=== PATIENT | male | born 1965 | race Hispanic/Latino ===

== ENCOUNTER 2017-01-12 16:44 | Observation (INO) | payer OTHER ==
[2017-01-12] MEDS ORDERED: Sodium Chloride 0.9% 500 ML IV STA (17:05)
--- NOTE | 2017-01-12 17:36 | ED PDOC ---
HPI: Chest Pain History Per: Patient, Family History/Exam Limitations: no limitations Onset/Duration Of Symptoms: Hrs Current Symptoms Are (Timing): Still Present Quality: Burning Associated Symptoms: Dyspnea. denies: Nausea, Diaphoresis, Syncope - Risk Factors PE Risk Factors: Pos: CHF Neg: Extremity Immobilization/Fx, Decreased Mobilty /Activity, Recent Major Surgery, Recent Hospitalization, Active Cancer, Previous DVT, Previous PE, Recent Major Trauma TAD Risk Factors: Neg: Hypertension, Connective Tissue Disease, Marfan's Syndrome, Brian- Danlos Syndrome, Aortic Valve Disease, Active , Migration Of Pain, New Neurologic Symptoms <Mak Mora - Last Filed: 01/12/17 19:04> <Santhosh Lester - Last Filed: 01/12/17 20:17> Time Seen by Provider: 01/12/17 17:25 Chief Complaint (Nursing): Chest Pain Additional Complaint(s): CC: chest pain HPI: 51 y/o man w/ 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 The patient reports SOB started first in the morning and became worse by noon. Patient then reports burning, epigastric pain with radaition to the back at 16:00. The patient also reports increased non-productive cough over the past few days. The patient denies yariel colored or frothy sputum. The patient took lasix 20 mg PO 30 minutes prior to arrival to ED. The patient denies headaches, dizziness, abdominal pain, nausea, vomiting, diarrhea, dysuria, or fever. 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 Patient is on 2g sodium and 2L fluid restriction. Patient has not been able to establish follow up care upon moving. The patient has missed 2 doses of beta-isauro because he ran out but has been taking Entresto without issue. Allergies: ciprofloxacin, codeine PMH: systolic CHF (EF 40% as of 12/2015) PMD: none PSH: cath 05/2015 (clean, no stents) SOC: denies smoking, alcohol, and drugs ROS: negative for 12 points assessed unless otherwise reported in HPI (Mka Mora) Chest pain (Santhosh Lester) Supervising Attending Note <Mak Mora - Last Filed: 01/12/17 19:04> - Supervising Attending Note The Documented history was done by the: Physician Guide Tour The documented physical exam was done by the: Physician Guide Tour The documented procedures were done by the: Physician Guide Tour - Attestation: I have personally seen and examined this patient.: Yes I have fully participated in the care of the patient.: Yes I have reviewed all pertinent clinical information: Yes <Santhosh Lester - Last Filed: 01/12/17 20:17> - Notes: Notes:: Dyspnea and chest pain (Santhosh Lester) Past Medical History - Medical History PMH: CHF, Chronic Kidney Disease - Family History Family History: States: Unknown Family Hx <Mak Mora - Last Filed: 01/12/17 19:04> - Medical History Other PMH: myocarditis hx <Santhosh Lester - Last Filed: 01/12/17 20:17> Vital Signs: Last Vital Signs Temp 98.2 F 01/12/17 16:53 Pulse 74 01/12/17 19:31 Resp 16 01/12/17 19:31 BP 122/74 01/12/17 19:31 Pulse Ox 100 01/12/17 19:31 - Home Medications Home Medications: Ambulatory Orders Medication Instructions Recorded Carvedilol [Coreg] 25 mg PO BID 01/12/17 Esomeprazole Magnesium [Nexium] 20 mg PO BID 01/12/17 Furosemide [Lasix] 12.5 mg PO DAILY PRN 01/12/17 Sacubitril/Valsartan [Entresto 24 1 tab PO BID 01/12/17 mg-26 mg] - Allergies Allergies/Adverse Reactions: Allergies Allergy/AdvReac Type Severity Reaction Status Date / Time ciprofloxacin [From Cipro] Allergy SHORTNESS Verified 01/12/17 16:53 OF BREATH codeine Allergy VOMITING Verified 01/12/17 16:53 RICKY Risk Score for UA/NSTEMI - RICKY Risk Score Age > 64: NO 3 or more CAD Risk Factors: NO Known CAD (Stenosis greater than 50%): NO Aspirin use in past 7 days: NO Severe Angina: NO EKG ST changes greater than 0.5mm: NO RICKY Score: 0 Risk %: 5% <Mak Mora - Last Filed: 01/12/17 19:04> Curb-65 Severity Score - CURB-65 Severity Score Confusion: No Respiratory Rate greater than/equal to 30: No Systolic BP <90 or Diastolic BP less than/equal 60mmHg: No Age >64: No Curb-65 Score: 0 Percentage 30-day mortality: 0.6% <Mak Mora Last Filed: 01/12/17 19:04> Wells Criteria for PE - Wells Criteria for Pulmonary Embolism Clinical Signs and Symptoms of DVT: No P.E is #1 Diagnosis, or Equally Likely: No Heart Rate >100: Yes Immobilization at least 3 days;Surgery previous 4 weeks: No Previous, objectively diagnosed PE or DVT: No Hemoptysis: No Malignancy w/treatment within 6 months, or palliative: No Total Score: 1.5 <Mak Mora Filed: 01/12/17 19:04> Review of Systems ROS Statement: Except As Marked, All Systems Reviewed And Found Negative Constitutional: Negative for: Fever, Chills, Sweats Cardiovascular: Positive for: Chest Pain, Edema. Negative for: Orthopnea, Paroxysmal Noc. Dyspnea, Light Headedness Respiratory: Positive for: Cough, Shortness of Breath. Negative for: Hemoptysis , Sputum, Wheezing Gastrointestinal: Negative for: Nausea, Vomiting, Abdominal Pain, Diarrhea Genitourinary Male: Negative for: Dysuria Neurological: Negative for: Confusion, Altered Mental Status, Headache, Dizziness <Mak Mora Last Filed: 01/12/17 19:04> Physical Exam - Reviewed Nursing Documentation Reviewed: Yes Vital Signs Reviewed: Yes - Physical Exam Appears: Positive for: No Acute Distress Head Exam: Positive for: ATRAUMATIC, NORMAL INSPECTION, NORMOCEPHALIC Skin: Positive for: Normal Color, Warm, Dry. Negative for: Diaphoresis Neck: Positive for: Supple Cardiovascular/Chest: Positive for: Chest Non Tender, Edema, Tachycardia. Negative for: JVD, Murmur, Bradycardia Respiratory: Positive for: Decreased Breath Sounds. Negative for: Crackles, Rales, Rhonchi, Wheezing, Respiratory Distress Pulses-Carotid (L): 2+ Pulses-Carotid (R): 2+ Pulses-Radial (L): 2+ Pulses-Radial (R): 2+ Gastrointestinal/Abdominal: Positive for: Normal Exam Neurologic/Psych: Positive for: Alert, Oriented <Mak Mora - Last Filed: 01/12/17 19:04> - Physical Exam Neck: Positive for: Supple Cardiovascular/Chest: Positive for: Chest Non Tender, Edema, Tachycardia (mild) Respiratory: Positive for: Decreased Breath Sounds <Santhosh Lester - Last Filed: 01/12/17 20:17> - Laboratory Results Result Diagrams: 01/12/17 17:50 01/12/17 17:50 - ECG O2 Sat by Pulse Oximetry: 99 <Mak Mora - Last Filed: 01/12/17 19:04> - Laboratory Results Result Diagrams: 01/12/17 17:50 01/12/17 17:50 Interpretation Of Abn Labs: 3.3 k - ECG ECG: Positive for: Interpreted By Me, Viewed By Me ECG Rhythm: Positive for: Nonspecific Changes Pulse Ox Interpretation: Normal - Radiology X-Ray: Interpreted by Me X-Ray Interpretation: No Acute Disease <Santhosh Lester - Last Filed: 01/12/17 20:17> - Progress ED Course And Treament: CBC w/ diff CMP troponin pro-BNP D-dimer PT INR aPTT CXR EKG ASA 325 mg PO IVF NS 500mL @ 100mL/hr (Mak Mora) 2010: Stable. AAOx3. Pain gone. Dyspnea improving. No chest pain. Has been urinating. 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 2014: Stable. Spoke with Dr. Cavanaugh. Will admit tele obs and give further orders when pt. reaches floor. 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 Lester (Mak Mora) Disposition - Patient ED Disposition Is Patient to be Admitted: Transfer of Care Discussed With : Santhosh Lester - Disposition Disposition Time: 19:03 Patient Signed Over To: Santhosh Lester - POJosee Present On Arrival: None <Mak Mora - Last Filed: 01/12/17 19:04> - Patient ED Disposition Is Patient to be Admitted: Yes Discussed With : Poli Cavanaugh Counseled Patient/Family Regarding: Studies Performed, Diagnosis - POA Present On Arrival: None <Santhosh Lester - Last Filed: 01/12/17 20:17> - Clinical Impression Clinical Impression: Chest pain, CHF (congestive heart failure) - Disposition Condition: FAIR
[2017-01-12 18:16] LABS: BASO % 0.5 % (0.0-2.0); EOS # 0.1 K/uL (0.0-0.7); EOS % 1.2 % (0.0-4.0); HEMATOCRIT 43.7 % (35.0-51.0); LYMPH # 2.1 K/uL (1.0-4.3); LYMPH % 29.7 % (20.0-40.0); MEAN CELL VOLUME 91.1 fl (80.0-94.0); MEAN CORPUSCULAR HEMOGLOBIN 32.3 pg (27.0-31.0); MEAN CORPUSCULAR HGB CONC 35.5 g/dL (33.0-37.0); MEAN PLATELET VOLUME 6.8 fl (7.2-11.7); MONO # 0.6 K/uL (0.0-0.8); MONO % 8.5 % (0.0-10.0); NEUT # 4.3 K/uL (1.8-7.0); NEUT % 60.1 % (50.0-75.0); NRBC % 0.1 % (0.0-0.0); RED CELL DISTRIBUTION WIDTH 14.1 % (11.5-14.5); WHITE BLOOD COUNT 7.2 K/uL (4.8-10.8)
[2017-01-12 18:23] LABS: ALB/GLOB RATIO 1.5 (1.0-2.1); ALKALINE PHOSPHATASE 65 U/L (38-126); ALT/SGPT 37 U/L (21-72); AST/SGOT 29 U/L (17-59); BILIRUBIN,TOTAL 0.8 mg/dl (0.2-1.3); BLOOD UREA NITROGEN 17 mg/dl (9-20); CALCIUM 8.8 mg/dL (8.4-10.2); CARBON DIOXIDE 23 mmol/L (22-30); CHLORIDE 104 mmol/L (98-107); GFR AFRICAN-AMERICAN > 60; GLUCOSE,RANDOM 106 mg/dL (75-110); SODIUM 139 mmol/l (132-148); TOTAL PROTEIN 7.7 G/DL (6.3-8.2)
[2017-01-12 18:40] LABS: POTASSIUM 3.3 MMOL/L (3.6-5.0)
[2017-01-12 18:43] LABS: PARTIAL THROMBOPLASTIN TIME 33.4 Seconds (25.6-37.1)
--- NOTE | 2017-01-13 07:31 | CARD ---
APPROVED REPORT EKG Measurement Heart [id number] [place] 140P36 [id number] <Conclusion> Sinus tachycardia Nonspecific ST and T wave abnormality Abnormal ECG
[2017-01-13] MEDS ORDERED: Enoxaparin 40 mg Syringe SC SCH (09:00)
[2017-01-13] MEDS ORDERED: Patient's Own Med (Sacubitril/Valsartan [Entresto 24 Mg-26 Mg] 1 TAB) PO SCH (09:00)
--- NOTE | 2017-01-13 10:34 | RAD ---
HISTORY: pain chest COMPARISON: No prior. FINDINGS: LUNGS: Right hemidiaphragm is elevated however there is no definite acute infiltrate appreciated. An azygous fissure is noted at the medial right lung apex. PLEURA: No significant pleural effusion identified, no pneumothorax apparent. CARDIOVASCULAR: Normal. OSSEOUS STRUCTURES: No significant abnormalities. VISUALIZED UPPER ABDOMEN: Normal. OTHER FINDINGS: None. IMPRESSION: No acute infiltrate or pleural effusion identified bilaterally. An elevated right hemidiaphragm is appreciated of uncertain origin.
[2017-01-13 12:23] VITALS: RESP 16; TEMP 98.4
[2017-01-13] MEDS ORDERED: Potassium Chloride 20 mEq ER Tab PO ONE (13:00)
--- NOTE | 2017-01-13 15:46 | CT ---
PROCEDURE: CT Chest without contrast HISTORY: Elevated R hemidiaphragm COMPARISON: January 13, 2017. TECHNIQUE: Contiguous axial images were obtained through the chest without intravenous contrast enhancement. Sagittal and coronal reconstructions were performed. Radiation dose (DLP): 758.29 mGy-cm. This CT exam was performed using one or more of the following dose reduction techniques: Automated exposure control, adjustment of the mA and/or kV according to patient size, and/or use of iterative reconstruction technique. FINDINGS: LUNGS: Clear lungs. Visualized airway clear. MEDIASTINUM: Unremarkable thoracic aorta. No aneurysm. Normal sized heart. Main pulmonary artery unremarkable. No vascular congestion. No lymphadenopathy. PLEURA: No pleural fluid. No pneumothorax. Azygos fissure common normal variant BONES: No fracture. No destructive lesion. UPPER ABDOMEN: Grossly unremarkable. OTHER FINDINGS: None. IMPRESSION: No active pulmonary disease. Enlarged mediastinal lymph nodes of uncertain etiology and significance. Additional benign and/or incidental findings described above.
--- NOTE | 2017-01-13 16:27 | CARD ---
APPROVED REPORT EXAM: Two-dimensional and M-mode echocardiogram with Doppler and color Doppler. Other Information Quality : GoodRhythm : NSR INDICATION Congestive Heart Failure 2D DIMENSIONS IVSd1.24 (0.7-1.1cm)LVDd6.44 (3.9-5.9cm) LVOT Diameter2.52 (1.8-2.4cm)PWd0.56 (0.7-1.1cm) IVSs1.34 (0.8-1.2cm)LVDs5.58 (2.5-4.0cm) FS (%) 13.3 %PWs0.89 (0.8-1.2cm) M-Mode DIMENSIONS Left Atrium (MM)4.17 (2.5-4.0cm)IVSd1.06 (0.7-1.1cm) Aortic Root3.04 (2.2-3.7cm)LVDd5.56 (4.0-5.6cm) Aortic Cusp Exc.2.12 (1.5-2.0cm)PWd0.99 (0.7-1.1cm) IVSs0.99 cmFS (%) 13 % LVDs4.83 (2.0-3.8cm)PWs1.06 cm Mitral Valve MV E Rulxfzwm91.4cm/sMV DECEL [id number] A Azdbkhjg30.0cm/s MV PXJ01ulN/A ratio0.6MVA (PHT)6.31cm2 TDI Lateral E' Peak V8.96cm/sMedial E' Peak V5.46cm/sE/Lateral E'4.0 E/Medial E'6.5 Pulmonary Valve PV Peak Dusmtxzv72.5cm/s LEFT VENTRICLE The Left Ventricle is moderately dilated. There is normal left ventricular wall thickness. The systolic function is mildly to moderately impaired. The Ejection Fraction is 30-35%. There is global hypokinesis of the left ventricle. The left ventricular diastolic function is normal. No left ventricle thrombus noted on this study. There is no mass noted in the left ventricle. RIGHT VENTRICLE The right ventricle is normal size. There is normal right ventricular wall thickness. The right ventricular systolic function is normal. ATRIA The left atrium size is normal. The right atrium size is normal. The interatrial septum is intact with no evidence for an atrial septal defect. AORTIC VALVE The aortic valve is normal in structure and function. No aortic regurgitation is present. There is no aortic valvular stenosis. There is no aortic valvular vegetation. MITRAL VALVE The mitral valve is normal in structure and function. There is no evidence of mitral valve prolapse. There is no mitral valve stenosis. Mitral regurgitation is mild. TRICUSPID VALVE The tricuspid valve is normal in structure and function. There is no tricuspid valve regurgitation noted. There is no tricuspid valve prolapse or vegetation. There is no tricuspid valve stenosis. PULMONIC VALVE The pulmonary valve is normal in structure and function. There is no pulmonic valvular regurgitation. There is no pulmonic valvular stenosis. GREAT VESSELS The aortic root is normal in size. The IVC is normal in size and collapses >50% with inspiration. PERICARDIAL EFFUSION The pericardium appears normal. There is no pleural effusion. <Conclusion> The Left Ventricle is moderately dilated. The systolic function is mildly to moderately impaired. The Ejection Fraction is 30-35%. There is global hypokinesis of the left ventricle. Mitral regurgitation is mild.
[2017-01-13 16:34] VITALS: BP 107/71; PULSE 75; O2SAT 95
--- NOTE | 2017-01-13 16:47 | CARD ---
APPROVED REPORT EKG Measurement Heart [id number] [place] 134P52 [id number] <Conclusion> Normal sinus rhythm Nonspecific ST and T wave abnormality Abnormal ECG
--- NOTE | 2017-01-13 16:52 | CARD ---
APPROVED REPORT EKG Measurement Heart [id number] [place] 140P18 [id number] <Conclusion> Normal sinus rhythm Nonspecific ST and T wave abnormality Abnormal ECG
--- NOTE | 2017-01-13 23:33 | CP.PCM.HP ---
Past Patient History - Past Medical History & Family History Past Medical History?: Yes - Past Social History Smoking Status: Never Smoked - CARDIAC Hx Cardiac Disorders: Yes Hx Congestive Heart Failure: Yes (secondary to viral myocarditis) Other/Comment: Cardiac cath 12/2015 - 40% EF - PULMONARY Hx Respiratory Disorders: No - NEUROLOGICAL Hx Neurological Disorder: No - HEENT Hx HEENT Problems: No - RENAL Hx Chronic Kidney Disease: No - ENDOCRINE/METABOLIC Hx Endocrine Disorders: No - HEMATOLOGICAL/ONCOLOGICAL Hx Blood Disorders: No - INTEGUMENTARY Hx Dermatological Problems: No - MUSCULOSKELETAL/RHEUMATOLOGICAL Hx Musculoskeletal Disorders: No Hx Falls: No - GASTROINTESTINAL Hx Gastrointestinal Disorders: No - GENITOURINARY/GYNECOLOGICAL Hx Genitourinary Disorders: No - PSYCHIATRIC Hx Psychophysiologic Disorder: No Hx Substance Use: No - SURGICAL HISTORY Hx Surgeries: Yes Other/Comment: Deviated septum Sx X2, Sinus cyst removal - ANESTHESIA Hx Anesthesia: Yes Hx Anesthesia Reactions: No Hx Malignant Hyperthermia: No Meds Allergies/Adverse Reactions: Allergies Allergy/AdvReac Type Severity Reaction Status Date / Time ciprofloxacin [From Cipro] Allergy SHORTNESS Verified 01/12/17 16:53 OF BREATH codeine Allergy VOMITING Verified 01/12/17 16:53 Results - Vital Signs Recent Vital Signs: Last Vital Signs Temp 98.4 F 01/13/17 16:33 Pulse 75 01/13/17 16:33 Resp 16 01/13/17 16:33 BP 107/71 01/13/17 16:33 Pulse Ox 95 01/13/17 16:33 - Labs Result Diagrams: 01/12/17 17:50 01/12/17 17:50 Labs: Laboratory Results - last 24 hr 01/13/17 01/13/17 02:21 10:40 Troponin I < 0.0120 < 0.0120
== END 2017-01-13 17:20 | disposition home or self-care (01) ==
LOC: H.ER 16:44 → H.ERHOLD 20:15 → H.TEL 21:05
PROVIDERS: ADMIT Internal Medicine; ATTEND Internal Medicine
DX: R07.9 Chest pain, unspecified (principal); N18.9 Chronic kidney disease, unspecified; I50.20 Unspecified systolic (congestive) heart failure; Z88.6 Allergy status to analgesic agent; Z88.3 Allergy status to other anti-infective agents
CPT/HCPCS: 36415; 71010; 71250; 80053; 83880; 84484; 85025; 85378; 85610; 85730; 93005; 93306; 99285; G0378; J1650; J1940; J7040